=== PATIENT | female | born 1995 | race Caucasian/White ===

== ENCOUNTER 2023-06-11 17:48 | Emergency (ER) | payer MEDICAID ==
[~2023-06-11] VITALS: Ht 162.6 cm; Wt 66.0 kg
[2023-06-11 17:57] VITALS: O2SAT 99
[2023-06-11 19:04] VITALS: TEMP 99
[2023-06-11] MEDS ORDERED: ACETAMINOPHEN 325MG TABLET PO STA (19:04)
[2023-06-11] MEDS ORDERED: MECLIZINE 25MG TABLET PO ONE (19:15)
[2023-06-11] MEDS ORDERED: MECLIZINE 12.5MG TABLET PO NR (19:30)
[2023-06-11 19:47] LABS: EOSINOPHILS % 0.4 % (0.0-5.0); HEMATOCRIT. 42.4 % (36.0-48.0); HEMOGLOBIN. 14.4 g/dL (12.0-16.0); MEAN CORPUSCULAR HEMOGLOBIN 29.1 pg (28.0-32.0); MEAN CORPUSCULAR HGB CONC 34.1 g/dL (31.0-37.0); MEAN CORPUSCULAR VOLUME 85.4 fL (81.0-99.0); MEAN PLATELET VOLUME 8.9 fl (7.4-10.4); NEUTROPHILS % 53.6 % (40.0-76.0); PLATELET 210 x1000/uL (130-400); RED BLOOD CELL COUNT 4.96 mill/uL (4.2-5.4); RED CELL DISTRIBUTION WIDTH 13.3 % (11.6-14.6); WHITE BLOOD COUNT 7.4 x1000/uL (4.5-11.0)
[2023-06-11 19:57] LABS: CHLORIDE 107 mEq/L (98-107); INDEX HEMOLYSI 1 (1-3); INDEX ICTERIC 1 (1-4); INDEX LIPEMIC 1 (1-3); POTASSIUM 4.2 mEq/L (3.5-5.1); PROTHROMBIN TIME 10.4 sec (9.6-11.0); SODIUM 138 mEq/L (136-145)
[2023-06-11 20:00] LABS: ALBUMIN 3.9 g/dL (3.4-5.0); CARBON DIOXIDE 24 mEq/L (21-32); GLUCOSE 96 mg/dL (70-105); UREA NITROGEN BLOOD 9 mg/dL (7-21)
[2023-06-11 20:03] LABS: ALANINE AMINOTRANSFERASE 21 IU/L (13-61); ASPARTATE AMINOTRANSFERASE 19 IU/L (15-37); CREATININE 0.7 mg/dL (0.6-1.3)
[2023-06-11 20:05] LABS: BILIRUBIN TOTAL 0.3 mg/dL (0.1-1.0); PROTEIN TOTAL 7.6 g/dL (6.0-8.3)
[2023-06-11] MEDS ORDERED: MECL-159 MT (20:45)
[2023-06-11 21:05] VITALS: BP 104/64; PULSE 65; RESP 17
== END 2023-06-11 21:10 | disposition home or self-care (01) ==
LOC: ER 17:48
DX: R51.9 Headache, unspecified (principal); R42 Dizziness and giddiness
CPT/HCPCS: 99283; 80053; 81025; 85025; 85610; 36415; J8597

== ENCOUNTER 2024-01-02 09:45 | Emergency (ER) | payer MEDICAID, OTHER ==
[~2024-01-02] VITALS: Ht 154.9 cm; Wt 63.5 kg
[~2024-01-02 09:45] MED LIST: MECL-299 MT
[2024-01-02 09:58] VITALS: O2SAT 100
[2024-01-02] MEDS ORDERED: AMOX1TAB16 MT (10:06)
[2024-01-02 10:35] VITALS: BP 104/66; PULSE 111; RESP 16; TEMP 98.8
== END 2024-01-02 10:34 | disposition home or self-care (01) ==
LOC: ER 09:45
DX: J02.9 Acute pharyngitis, unspecified (principal)
CPT/HCPCS: 99283